=== PATIENT | male | born 1985 | race Caucasian/White ===

== ENCOUNTER 2016-07-02 10:34 | Emergency (ER) | payer BC ==
[2016-07-02] MEDS ORDERED: cefTRIAXone 250 MG Vial IM ONE (11:05)
[2016-07-02] MEDS ORDERED: cefTRIAXone 1,000 MG in Lidocaine 1% 4 ML IM ONE (11:17)
--- NOTE | 2016-07-02 11:25 | EDM.PDOC ---
ED HPI GENERAL MEDICAL PROBLEM - General Chief Complaint: Skin Complaint Stated Complaint: NOT FEELING WELL Time Seen by Provider: 07/02/16 11:21 Source of Information: Reports: Patient History Limitations: Reports: No Limitations - History of Present Illness INITIAL COMMENTS - FREE TEXT/NARRATIVE: History of present illness: [31-year-old male comes in complaining of any skin eruption on his left gluteal fold. Patient indicates that it started approximately 3 or 4 days ago and had become too little bit of the head and now with swelling and more painful.] Review of systems: As per history of present illness and below otherwise all systems reviewed and negative. Past medical history: As per history of present illness and as reviewed below otherwise noncontributory. Surgical history: As per history of present illness and as reviewed below otherwise noncontributory. Social history: No reported history of drug or alcohol abuse. Family history: As per history of present illness and as reviewed below otherwise noncontributory. Physical exam: HEENT: Atraumatic, normocephalic, pupils reactive, negative for conjunctival pallor or scleral icterus, mucous membranes moist, throat clear, neck supple, nontender, trachea midline. Lungs: Clear to auscultation, breath sounds equal bilaterally, chest nontender. Heart: S1S2, regular, negative for clicks, rubs, or JVD. Abdomen: Soft, nondistended, nontender. Negative for masses or hepatosplenomegaly. Negative for costovertebral tenderness. Pelvis: Stable nontender. Genitourinary: Deferred. Rectal: Left buttock with diffuse erythematous hard area without bogginess or clear delineation for I&D Extremities: Atraumatic, negative for cords or calf pain. Neurovascular unremarkable. Neuro: Awake, alert, oriented. Cranial nerves II through XII unremarkable. Cerebellum unremarkable. Motor and sensory unremarkable throughout. Exam nonfocal. Diagnostics: [] Therapeutics: [2 g Rocephin IM] Impression: [Folliculitis/cellulitis] Plan: [Bactrim DS] Definitive disposition and diagnosis as appropriate pending reevaluation and review of above. Buttock Pain Score (Numeric/FACES): 7 - Related Data Allergies Allergy/AdvReac Type Severity Reaction Status Date / Time No Known Allergies Allergy Verified 07/02/16 10:43 Home Meds: Home Meds Sulfamethoxazole/Trimethoprim [Bactrim Ds Tablet] 1 each PO BID #20 tablet 07/02 [Rx] Past Medical History - Past Health History Medical/Surgical History: Denies Medical/Surgical History HEENT History: Reports: None Cardiovascular History: Reports: None Respiratory History: Reports: None Gastrointestinal History: Reports: None Genitourinary History: Reports: None Musculoskeletal History: Reports: None Neurological History: Reports: None Psychiatric History: Reports: None Endocrine/Metabolic History: Reports: None Hematologic History: Reports: None Immunologic History: Reports: None Oncologic (Cancer) History: Reports: None Dermatologic History: Reports: Cellulitis - Infectious Disease History Infectious Disease History: Reports: MRSA - Past Surgical History Head Surgeries/Procedures: Reports: None Male Surgical History: Reports: None Social & Family History - Family History Family Medical History: Noncontributory - Tobacco Use Smoking Status *Q: Current Every Day Smoker Years of Tobacco use: 10 Packs/Tins Daily: 0.5 - Caffeine Use Caffeine Use: Reports: Energy Drinks, Soda - Alcohol Use Days Per Week of Alcohol Use: 1 Number of Drinks Per Day: 10 Total Drinks Per Week: 10 - Recreational Drug Use Recreational Drug Use: No ED ROS GENERAL - Review of Systems Review Of Systems: See Below (See history of present illness) ED EXAM, SKIN/RASH Exam: See Below (See history of present illness) Course - Vital Signs Last Recorded V/S: Last Vital Signs Temp 36.6 C 07/02/16 10:44 Pulse 88 07/02/16 10:44 Resp 18 07/02/16 10:44 BP 158/68 H 07/02/16 10:44 Pulse Ox 96 07/02/16 10:44 - Orders/Labs/Meds Meds: Medications Discontinued Medications Generic Name Dose Route Start Last Admin Trade Name Janet PRN Reason Stop Dose Admin Ceftriaxone Sodium 2,000 mg 07/02/16 11:05 07/02/16 11:16 Rocephin IM 07/02/16 11:06 Not Given ONETIME ONE Ceftriaxone Sodium 1,000 mg/ 4 mls @ 4 mls/sec 07/02/16 11:17 Lidocaine HCl IM 07/02/16 11:18 ONETIME ONE Ceftriaxone Sodium 1,000 mg/ 2 mls @ 2 mls/sec 07/02/16 11:17 Lidocaine HCl IM 07/02/16 11:18 ONETIME ONE Departure - Departure Time of Disposition: 11:24 Disposition: Home, Self-Care 01 Preliminary Cause of *Q: Cardiac arrest Clinical Impression: Cellulitis - Discharge Information Prescriptions: Sulfamethoxazole/Trimethoprim [Bactrim Ds Tablet] 1 each PO BID #20 tablet Forms: ED Department Discharge Additional Instructions: The following information is given to patients seen in the emergency department who are being discharged to home. This information is to outline your options for follow-up care. We provide all patients seen in our emergency department with a follow-up referral. The need for follow-up, as well as the timing and circumstances, are variable depending upon the specifics of your emergency department visit. If you don't have a primary care physician on staff, we will provide you with a referral. We always advise you to contact your personal physician following an emergency department visit to inform them of the circumstance of the visit and for follow-up with them and/or the need for any referrals to a consulting specialist. The emergency department will also refer you to a specialist when appropriate. This referral assures that you have the opportunity for follow-up care with a specialist. All of these measure are taken in an effort to provide you with optimal care, which includes your follow-up. Under all circumstances we always encourage you to contact your private physician who remains a resource for coordinating your care. When calling for follow-up care, please make the office aware that this follow-up is from your recent emergency room visit. If for any reason you are refused follow-up, please contact the [facility] Emergency Department at and asked to speak to the emergency department charge nurse. Take medication as directed Followup with PCP in one to 2 days Return to ED as needed as discussed [facility] [address] [place] [id number]
[2016-07-02] MEDS: LIDOCAINE 1% IM ONE (11:34)
[2016-07-02] MEDS: CEFTRIAXONE IM ONE (11:34)
[2016-07-02 13:12] VITALS: BP 142/72
== END 2016-07-02 11:38 | disposition home or self-care (01) ==
LOC: MW.ED 10:34
DX: L03.317 Cellulitis of buttock (principal); F17.210 Nicotine dependence, cigarettes, uncomplicated
CPT/HCPCS: 96372; 99283; J0696

== ENCOUNTER 2018-11-17 19:34 | Emergency (ER) | payer BC ==
[2018-11-17] MEDS ORDERED: cefTRIAXone 1 GM in Premix Bag 1 BAG IV ONE (19:55)
--- NOTE | 2018-11-17 20:10 | EDM.PDOC ---
ED HPI GENERAL MEDICAL PROBLEM - General Chief Complaint: Skin Complaint Stated Complaint: UNKNOWN Time Seen by Provider: 11/17/18 19:38 Source of Information: Reports: Patient History Limitations: Reports: No Limitations - History of Present Illness INITIAL COMMENTS - FREE TEXT/NARRATIVE: HISTORY AND PHYSICAL: History of present illness: Patient is a 33-year-old male presents to the ED today with concern of an infection on his mid abdomen 5 days. Patient states he's had issues with boils popping up over his body over the past several months and has taken Keflex with resolution of the infections. Patient states he started getting an infection in his midabdomen 5 days ago which has not resolved. Other than the infection, patient denies any other symptoms or concerns at this time. Patient denies fever, chills, chest pain, shortness of breath, or cough. Denies headache, neck stiff ness, change in vision, syncope, or near syncope. Denies nausea, vomiting, abdominal pain, diarrhea, constipation, or dysuria. Has not noted any blood in urine or stool. Patient has been eating and drinking appropriately. Review of systems: As per history of present illness and below otherwise all systems reviewed and negative. Past medical history: As per history of present illness and as reviewed below otherwise noncontributory. Surgical history: As per history of present illness and as reviewed below otherwise noncontributory. Social history: See social history for further information Family history: As per history of present illness and as reviewed below otherwise noncontributory. Physical exam: General: Patient is alert, oriented, and in no acute distress. Patient sitting comfortably on exam table. HEENT: Atraumatic, normocephalic, pupils equal and reactive bilaterally, negative for conjunctival pallor or scleral icterus, mucous membranes moist, TMs normal bilaterally, throat clear, neck supple, nontender, trachea midline. No drooling or trismus noted. No meningeal signs. No hot potato voice noted. Lungs: Clear to auscultation, breath sounds equal bilaterally, chest nontender. Heart: S1S2, regular rate and rhythm without overt murmur Abdomen: Soft, nondistended, nontender. Negative for masses or hepatosplenomegaly. Negative for costovertebral tenderness. Pelvis: Stable nontender. Genitourinary: Deferred. Rectal: Deferred. Skin: Intact, warm, dry. No lesions or rashes noted. Extremities: Atraumatic, negative for cords or calf pain. Neurovascular unremarkable. Neuro: Awake, alert, oriented. Cranial nerves II through XII unremarkable. Cerebellum unremarkable. Motor and sensory unremarkable throughout. Exam nonfocal. Notes: Dr. Gerard directly involved in patient care I did call and speak with Dr. Powell, general surgeon emission technician, who would like patient to not eat or drink anything tonight after midnight and to arrive tomorrow at 7:30/8a.m at the day surgery center, and he plans to I&D the abscess tomorrow morning. Voices understanding and is agreeable to plan of care. Denies any further questions or concerns at this time. Diagnostics: CBC, CMP, UA, lactate, blood cultures 2, abdominal pelvic CT with contrast Therapeutics: Rocephin Prescription: None Impression: Subcutaneous abdominal abscess Plan: 1. You are to arrive tomorrow at 7:45am/8am at that same day surgery center to be seen by Dr. Powell for surgery. 2. Do not eat or drink anything after midnight tonight. 3. You can alternate ibuprofen and Tylenol as directed for pain and discomfort. 4. Return to the ED as needed and as discussed. Definitive disposition and diagnosis as appropriate pending reevaluation and review of above. middle abd Pain Score (Numeric/FACES): 7 - Related Data Allergies Allergy/AdvReac Type Severity Reaction Status Date / Time No Known Allergies Allergy Verified 11/17/18 19:44 Home Meds: Home Meds FLUoxetine HCl [Fluoxetine] 1 tab DAILY 11/17/18 [History] Past Medical History - Past Health History Medical/Surgical History: Denies Medical/Surgical History HEENT History: Reports: None Cardiovascular History: Reports: None Respiratory History: Reports: None Gastrointestinal History: Reports: None Genitourinary History: Reports: None Musculoskeletal History: Reports: None Neurological History: Reports: None Psychiatric History: Reports: None Endocrine/Metabolic History: Reports: None Hematologic History: Reports: None Immunologic History: Reports: None Oncologic (Cancer) History: Reports: None Dermatologic History: Reports: Cellulitis - Infectious Disease History Infectious Disease History: Reports: MRSA - Past Surgical History Head Surgeries/Procedures: Reports: None Male Surgical History: Reports: None Social & Family History - Family History Family Medical History: Noncontributory - Tobacco Use Smoking Status *Q: Current Every Day Smoker Years of Tobacco use: 3 Packs/Tins Daily: 0.5 - Caffeine Use Caffeine Use: Reports: None - Recreational Drug Use Recreational Drug Use: No ED ROS GENERAL - Review of Systems Review Of Systems: ROS reveals no pertinent complaints other than HPI. ED EXAM, SKIN/RASH Exam: See Below (See dictation) Course - Vital Signs Last Recorded V/S: Last Vital Signs Temp 97.6 F 11/17/18 19:42 Pulse 88 11/17/18 19:42 Resp 18 11/17/18 19:42 BP 143/90 H 11/17/18 19:42 Pulse Ox 96 11/17/18 19:42 - Orders/Labs/Meds Orders: Active Orders 24 hr Category Date Time Status CULTURE BLOOD [BC] Stat Lab 11/17/18 20:07 Received CULTURE BLOOD [BC] Stat Lab 11/17/18 20:19 Received Blood Culture x2 Reflex Set [OM.PC] Stat Oth 11/17/18 19:54 Ordered Labs: Laboratory Tests 11/17/18 11/17/18 11/17/18 Range/Units 19:50 20:07 20:07 WBC 13.59 H (4.0-11.0) K/uL RBC 5.23 (4.50-5.90) M/uL Hgb 15.6 (13.0-17.0) g/dL Hct 46.1 (38.0-50.0) % MCV 88.1 (80.0-98.0) fL MCH 29.8 (27.0-32.0) pg MCHC 33.8 (31.0-37.0) g/dL RDW Std Deviation 49.1 (28.0-62.0) fl RDW Coeff of Shereen 15 (11.0-15.0) % Plt Count 213 (150-400) K/uL MPV 10.20 (7.40-12.00) fL Neut % (Auto) 81.0 H (48.0-80.0) % Lymph % (Auto) 8.6 L (16.0-40.0) % [place] % (Auto) 8.2 (0.0-15.0) % Eos % (Auto) 2.1 (0.0-7.0) % Baso % (Auto) 0.1 (0.0-1.5) % Neut # (Auto) 11.0 H (1.4-5.7) K/uL Lymph # (Auto) 1.2 (0.6-2.4) K/uL [place] # (Auto) 1.1 H (0.0-0.8) K/uL Eos # (Auto) 0.3 (0.0-0.7) K/uL Baso # (Auto) 0.0 (0.0-0.1) K/uL Nucleated RBC % 0.0 /100WBC Nucleated RBCs # 0 K/uL Lactate (0.20-2.00) mmol/L Sodium 138 (136-148) mmol/L Potassium 4.3 (3.5-5.1) mmol/L Chloride 102 (98-107) mmol/L Carbon Dioxide 24.6 (21.0-32.0) mmol/L BUN 17 (7.0-18.0) mg/dL Creatinine 1.6 H (0.8-1.3) mg/dL Est Cr Clr Drug Dosing 70.73 mL/min Estimated GFR (MDRD) 49.4 ml/min Glucose 80 (74-106) mg/dL Calcium 8.6 (8.5-10.1) mg/dL Total Bilirubin 0.5 (0.2-1.0) mg/dL AST 61 H (15-37) IU/L ALT 77 H (14-63) IU/L Alkaline Phosphatase 48 (46-116) U/L Total Protein 7.8 (6.4-8.2) g/dL Albumin 3.4 (3.4-5.0) g/dL Globulin 4.4 H (2.6-4.0) g/dL Albumin/Globulin Ratio 0.8 L (0.9-1.6) Urine Color YELLOW Urine Appearance SLT CLOUDY Urine pH 6.0 (5.0-8.0) Ur Specific [place] >= 1.030 (1.001-1.035) Urine Protein 100 H (NEGATIVE) mg/dL Urine Glucose (UA) NEGATIVE (NEGATIVE) mg/dL Urine Ketones NEGATIVE (NEGATIVE) mg/dL Urine Occult Blood TRACE-INTACT H (NEGATIVE) Urine Nitrite NEGATIVE (NEGATIVE) Urine Bilirubin SMALL H (NEGATIVE) Urine Urobilinogen 1.0 (<2.0) EU/dL Ur Leukocyte Esterase NEGATIVE (NEGATIVE) Urine RBC 0-2 (0-2/HPF) Urine WBC 0-1 (0-5/HPF) Ur Epithelial Cells RARE (NONE-FEW) Urine Bacteria RARE (NEGATIVE) Urine Mucus LIGHT (NONE-MOD) 11/17/18 Range/Units 20:07 WBC (4.0-11.0) K/uL RBC (4.50-5.90) M/uL Hgb (13.0-17.0) g/dL Hct (38.0-50.0) % MCV (80.0-98.0) fL MCH (27.0-32.0) pg MCHC (31.0-37.0) g/dL RDW Std Deviation (28.0-62.0) fl RDW Coeff of Shereen (11.0-15.0) % Plt Count (150-400) K/uL MPV (7.40-12.00) fL Neut % (Auto) (48.0-80.0) % Lymph % (Auto) (16.0-40.0) % [place] % (Auto) (0.0-15.0) % Eos % (Auto) (0.0-7.0) % Baso % (Auto) (0.0-1.5) % Neut # (Auto) (1.4-5.7) K/uL Lymph # (Auto) (0.6-2.4) K/uL [place] # (Auto) (0.0-0.8) K/uL Eos # (Auto) (0.0-0.7) K/uL Baso # (Auto) (0.0-0.1) K/uL Nucleated RBC % /100WBC Nucleated RBCs # K/uL Lactate 0.9 (0.20-2.00) mmol/L Sodium (136-148) mmol/L Potassium (3.5-5.1) mmol/L Chloride (98-107) mmol/L Carbon Dioxide (21.0-32.0) mmol/L BUN (7.0-18.0) mg/dL Creatinine (0.8-1.3) mg/dL Est Cr Clr Drug Dosing mL/min Estimated GFR (MDRD) ml/min Glucose (74-106) mg/dL Calcium (8.5-10.1) mg/dL Total Bilirubin (0.2-1.0) mg/dL AST (15-37) IU/L ALT (14-63) IU/L Alkaline Phosphatase (46-116) U/L Total Protein (6.4-8.2) g/dL Albumin (3.4-5.0) g/dL Globulin (2.6-4.0) g/dL Albumin/Globulin Ratio (0.9-1.6) Urine Color Urine Appearance Urine pH (5.0-8.0) Ur Specific [place] (1.001-1.035) Urine Protein (NEGATIVE) mg/dL Urine Glucose (UA) (NEGATIVE) mg/dL Urine Ketones (NEGATIVE) mg/dL Urine Occult Blood (NEGATIVE) Urine Nitrite (NEGATIVE) Urine Bilirubin (NEGATIVE) Urine Urobilinogen (<2.0) EU/dL Ur Leukocyte Esterase (NEGATIVE) Urine RBC (0-2/HPF) Urine WBC (0-5/HPF) Ur Epithelial Cells (NONE-FEW) Urine Bacteria (NEGATIVE) Urine Mucus (NONE-MOD) Meds: Medications Discontinued Medications Generic Name Dose Route Start Last Admin Trade Name Freq PRN Reason Stop Dose Admin Ceftriaxone Sodium/Dextrose 1 50 mls @ 100 mls/hr 11/17/18 19:55 11/17/18 20: 18 gm/ Premix IV 11/17/18 20:24 100 mls/hr ONETIME ONE Administration Iopamidol 100 ml 11/17/18 20:55 11/17/18 20:57 Isovue Multipack-370 (76%) IVPUSH 11/17/18 20:56 100 ml ONETIME STA Administration Departure - Departure Time of Disposition: 22:25 Disposition: Home, Self-Care 01 Clinical Impression: Subcutaneous abscess Qualifiers: Site of cutaneous abscess: trunk Site of cutaneous abscess of trunk: abdominal wall Qualified Code(s): L02.211 - Cutaneous abscess of abdominal wall - Discharge Information Referrals: PCP,None [Primary Care Provider] - Forms: ED Department Discharge Additional Instructions: The following information is given to patients seen in the emergency department who are being discharged to home. This information is to outline your options for follow-up care. We provide all patients seen in our emergency department with a follow-up referral. The need for follow-up, as well as the timing and circumstances, are variable depending upon the specifics of your emergency department visit. If you don't have a primary care physician on staff, we will provide you with a referral. We always advise you to contact your personal physician following an emergency department visit to inform them of the circumstance of the visit and for follow-up with them and/or the need for any referrals to a consulting specialist. The emergency department will also refer you to a specialist when appropriate. This referral assures that you have the opportunity for follow-up care with a specialist. All of these measure are taken in an effort to provide you with optimal care, which includes your follow-up. Under all circumstances we always encourage you to contact your private physician who remains a resource for coordinating your care. When calling for follow-up care, please make the office aware that this follow-up is from your recent emergency room visit. If for any reason you are refused follow-up, please contact the [facility] Emergency Department at and asked to speak to the emergency department charge nurse. [facility] [address] [place] [address] [facility] - General Surgery, Dr. Powell Professional [address], [address] [place] [address] 1. You are to arrive tomorrow at 7:45am/8am at that same day surgery center to be seen by Dr. Powell for surgery. 2. Do not eat or drink anything after midnight tonight. 3. You can alternate ibuprofen and Tylenol as directed for pain and discomfort. 4. Return to the ED as needed and as discussed. - My Orders Last 24 Hours: My Active Orders 11/17/18 19:54 Blood Culture x2 Reflex Set [OM.PC] Stat 11/17/18 20:07 CULTURE BLOOD [BC] Stat 11/17/18 20:19 CULTURE BLOOD [BC] Stat - Assessment/Plan Last 24 Hours: My Active Orders 11/17/18 19:54 Blood Culture x2 Reflex Set [OM.PC] Stat 11/17/18 20:07 CULTURE BLOOD [BC] Stat 11/17/18 20:19 CULTURE BLOOD [BC] Stat
[2018-11-17 20:33] LABS: CARBON DIOXIDE,CO2 24.6 mmol/L (21.0-32.0); POTASSIUM,K 4.3 mmol/L (3.5-5.1)
[2018-11-17] MEDS ORDERED: Iopamidol 755 MG/ML 500 ML Multipack Bottle IVPUSH STA (20:55)
--- NOTE | 2018-11-17 21:28 | CT ---
INDICATION: Infection around epigastric area. TECHNIQUE: Contiguous axial images were acquired through the abdomen and pelvis after the intravenous administration of contrast. Sagittal and coronal reconstructions. COMPARISON: None. FINDINGS: Lower chest: Normal heart size. No pericardial effusion. Lung bases are clear. No pleural fluid. Abdomen and pelvis: The liver appears unremarkable. Contracted gallbladder. Spleen is normal in size. Pancreas is within normal limits. No adrenal gland abnormality. Kidneys are normal size. No suspicious renal mass or hydronephrosis. Normal caliber abdominal aorta. No abnormally dilated bowel to suggest obstruction. No free air or free fluid. Unremarkable urinary bladder and prostate. Other: There is a small fat containing supraumbilical hernia. Within the subcutaneous tissues anterior to the tip of the xiphoid, there is a subtle low-attenuation focus which on axial image 36 measures 2.5 x 1.3 cm. There are surrounding inflammatory changes. Bones: No acute abnormality. IMPRESSION: 1. In the subcutaneous tissues anterior to the tip of the xiphoid process there is a subtle low-attenuation focus with surrounding inflammatory changes, which is concerning for an abscess. 2. Nonacute findings as noted. Dictated by Rafiq Irene MD @ 11/17/2018 9:27:20 PM Please note that all CT scans at this facility use dose modulation, iterative reconstruction, and/or weight-based dosing when appropriate to reduce radiation dose to as low as reasonably achievable. Dictated by: Rafiq Irene MD @ 11/17/2018 21:27:25 (Electronically Signed)
[2018-11-17 22:29] VITALS: BP 159/79; PULSE 84
== END 2018-11-17 22:36 | disposition home or self-care (01) ==
LOC: MW.ED 19:34
DX: L02.211 Cutaneous abscess of abdominal wall (principal); F17.210 Nicotine dependence, cigarettes, uncomplicated
CPT/HCPCS: 36415; 74177; 80053; 81001; 83605; 85025; 87040; 96365; 99284; J0696; Q9967

== ENCOUNTER 2018-11-18 10:53 | Day surgery (SDC) | payer BC ==
[2018-11-18] MEDS ORDERED: ceFAZolin 1 GM Vial ONE (11:29)
[2018-11-18] MEDS ORDERED: Bupivacaine 0.5% 10 ML SDV ONE (11:29)
--- NOTE | 2018-11-18 12:13 | PCM.PREANE ---
Preanesthetic Assessment - Anesthesia/Transfusion/Family Hx Anesthesia History: Prior Anesthesia Without Reaction Family History of Anesthesia Reaction: No Transfusion History: No Prior Transfusion(s) - Review of Systems General: No Symptoms Pulmonary: No Symptoms Cardiovascular: No Symptoms Gastrointestinal: No Symptoms, Other (subcutaneous abcess) Neurological: No Symptoms Other: Reports: None - Physical Assessment NPO Status Date: 11/17/18 Vital Signs: Last Vital Signs Temp 98.1 F 11/18/18 11:23 Pulse 87 11/18/18 11:23 Resp 14 11/18/18 11:23 BP 165/66 H 11/18/18 11:23 Pulse Ox 99 11/18/18 11:23 Height: 6 ft Weight: 104.326 kg ASA Class: 2 Mental Status: Alert & Oriented x3 Airway Class: Mallampati = 2 Dentition: Reports: Normal Dentition ROM/Head Extension: Full Lungs: Clear to Auscultation, Normal Respiratory Effort Cardiovascular: Regular Rate, Regular Rhythm - Allergies Allergies/Adverse Reactions: Allergies Allergy/AdvReac Type Severity Reaction Status Date / Time No Known Allergies Allergy Verified 11/18/18 07:17 - Blood Blood Available: No - Anesthesia Plan Pre-Op Medication Ordered: None - Acknowledgements Anesthesia Type Planned: General Anesthesia Pt an Appropriate Candidate for the Planned Anesthesia: Yes Alternatives and Risks of Anesthesia Discussed w Pt/Guardian: Yes Additional Comments: PMH: smoker PLAN: ga/lma PreAnesthesia Questionnaire - Past Health History Medical/Surgical History: Denies Medical/Surgical History HEENT History: Reports: None Cardiovascular History: Reports: Other (See Below) Other Cardiovascular History: BP "a little high" but on no medications Respiratory History: Reports: None Gastrointestinal History: Reports: None Genitourinary History: Reports: None Musculoskeletal History: Reports: None Neurological History: Reports: None Psychiatric History: Reports: Anxiety, Depression, Other (See Below) Other Psychiatric History: going through divorce Endocrine/Metabolic History: Reports: Obesity/BMI 30+ Hematologic History: Reports: None Immunologic History: Other Immunologic History: MRSA in the past, states he has been cleared Oncologic (Cancer) History: Reports: None Dermatologic History: Reports: Cellulitis Other Dermatologic History: currently has open abdominal wound - Infectious Disease History Infectious Disease History: Reports: MRSA - Past Surgical History Head Surgeries/Procedures: Reports: None HEENT Surgical History: Reports: None Cardiovascular Surgical History: Reports: None Respiratory Surgical History: Reports: None GI Surgical History: Reports: None Male Surgical History: Reports: None Endocrine Surgical History: Reports: None Neurological Surgical History: Reports: Other (See Below) Other Neurological Surgeries/Procedures: spinal tap at 6 y/o under anesthesia Musculoskeletal Surgical History: Reports: None Oncologic Surgical History: Reports: None - SUBSTANCE USE Smoking Status *Q: Current Every Day Smoker Tobacco Use Within Last Twelve Months: Cigarettes - HOME MEDS Home Medications: Home Meds FLUoxetine HCl [Fluoxetine] 1 tab PO DAILY 11/17/18 [History] LORazepam [Ativan] 1 tab PO BID 11/18/18 [History] - CURRENT (IN HOUSE) MEDS Current Meds: Current Medications Discontinued Medications Bupivacaine HCl (Sensorcaine-Mpf 0.5%) Confirm Administered Dose 10 ml .ROUTE .STK-MED ONE Stop: 11/18/18 11:30 Cefazolin Sodium (Ancef) Confirm Administered Dose 3 gm .ROUTE .STK-MED ONE Stop: 11/18/18 11:30
[2018-11-18] MEDS ORDERED: Midazolam 1 MG/ML 2 ML SDV ONE (12:38)
[2018-11-18] MEDS ORDERED: fentaNYL 100 MCG/2 ML SDV ONE ×2 (12:40→13:01)
[2018-11-18] MEDS ORDERED: Propofol 200 MG/20 ML SDV ONE (12:42)
--- NOTE | 2018-11-18 12:47 | PCM.CONS ---
H&P History of Present Illness - General Date of Service: 11/18/18 Admit Problem/Dx: Anterior abdominal wall abscess Source of Information: Patient History Limitations: Reports: No Limitations - History of Present Illness Symptom Onset Date: 11/13/18 Duration of Symptoms: Reports: Day(s): Location: Reports: Abdomen Quality: Reports: Pressure, Throbbing Improves with: Reports: Rest Worsens with: Reports: Movement Associated Symptoms: Reports: No Other Symptoms - Related Data Allergies/Adverse Reactions: Allergies Allergy/AdvReac Type Severity Reaction Status Date / Time No Known Allergies Allergy Verified 11/18/18 07:17 Home Medications: Home Meds FLUoxetine HCl [Fluoxetine] 1 tab PO DAILY 11/17/18 [History] LORazepam [Ativan] 1 tab PO BID 11/18/18 [History] Past Medical History - Past Health History Medical/Surgical History: Denies Medical/Surgical History HEENT History: Reports: None Cardiovascular History: Reports: Other (See Below) Other Cardiovascular History: BP "a little high" but on no medications Respiratory History: Reports: None Gastrointestinal History: Reports: None Genitourinary History: Reports: None Musculoskeletal History: Reports: None Neurological History: Reports: None Psychiatric History: Reports: Anxiety, Depression, Other (See Below) Other Psychiatric History: going through divorce Endocrine/Metabolic History: Reports: Obesity/BMI 30+ Hematologic History: Reports: None Immunologic History: Other Immunologic History: MRSA in the past, states he has been cleared Oncologic (Cancer) History: Reports: None Dermatologic History: Reports: Cellulitis Other Dermatologic History: currently has open abdominal wound - Infectious Disease History Infectious Disease History: Reports: MRSA - Past Surgical History Head Surgeries/Procedures: Reports: None HEENT Surgical History: Reports: None Cardiovascular Surgical History: Reports: None Respiratory Surgical History: Reports: None GI Surgical History: Reports: None Male Surgical History: Reports: None Endocrine Surgical History: Reports: None Neurological Surgical History: Reports: Other (See Below) Other Neurological Surgeries/Procedures: spinal tap at 6 y/o under anesthesia Musculoskeletal Surgical History: Reports: None Oncologic Surgical History: Reports: None Social & Family History - Family History Family Medical History: Noncontributory - Tobacco Use Smoking Status *Q: Current Every Day Smoker Packs/Tins Daily: 0.5 - Caffeine Use Caffeine Use: Reports: None - Recreational Drug Use Drug Use in Last 12 Months: No H&P Review of Systems - Review of Systems: Review Of Systems: See Below General: Denies: Fever, Chills, Malaise, Weakness, Fatigue HEENT: Reports: No Symptoms Pulmonary: Denies: Shortness of Breath Cardiovascular: Denies: Chest Pain Gastrointestinal: Reports: No Symptoms Genitourinary: Denies: Dysuria, Frequency, Burning, Pain Musculoskeletal: Reports: No Symptoms Skin: Reports: Other (Anterior abdominal wall abscess just below the xiphoid) Psychiatric: Reports: No Symptoms Neurological: Denies: Confusion, Dizziness, Headache Hematologic/Lymphatic: Reports: No Symptoms Immunologic: Reports: No Symptoms Exam - Exam Exam: See Below - Vital Signs Vital Signs: Last Vital Signs Temp 98.1 F 11/18/18 11:23 Pulse 87 11/18/18 11:23 Resp 14 11/18/18 11:23 BP 165/66 H 11/18/18 11:23 Pulse Ox 99 11/18/18 11:23 Weight: 230 lb - Exam Quality Assessment: Supplemental Oxygen General: Alert, Oriented, Cooperative, Mild Distress HEENT: Conjunctiva Clear, EACs Clear, EOMI, Nares Patent, Pupils Equal, Pupils Reactive Neck: Supple, Trachea Midline Lungs: Clear to Auscultation, Normal Respiratory Effort Cardiovascular: Regular Rate, Regular Rhythm GI/Abdominal Exam: Normal Bowel Sounds, Soft, Non-Tender, No Distention (Male) Exam: Deferred Rectal (Males) Exam: Deferred Extremities: Normal Range of Motion. No: Normal Inspection Peripheral Pulses: 4+: Posterior Tibial (L), Posterior Tibial (R), Dorsalis Pedis (L), Dorsalis Pedis (R) Skin: Warm, Dry, Intact, Other (4 cm anterior abdominal wall abscess just below the xiphoid) Neurological: Cranial Nerves Intact, Reflexes Equal Bilateral Psychiatric: Alert, Normal Affect, Normal Mood Consult PN Assessment/Plan Procedures: Procedures EMERGENCY DEPT VISIT (01/19/18) EMERGENCY DEPT VISIT (07/02/16) EMERGENCY DEPT VISIT (08/17/13) EMERGENCY DEPT VISIT (08/17/13) EMERGENCY DEPT VISIT (05/06/13) EMERGENCY DEPT VISIT (05/06/13) THER/PROPH/DIAG INJ SC/IM (07/02/16) (1) Subcutaneous abscess SNOMED Code(s): 56842238 Code(s): L02.91 - CUTANEOUS ABSCESS, UNSPECIFIED Current Visit: No Qualifiers: Site of cutaneous abscess: trunk Site of cutaneous abscess of trunk: abdominal wall Qualified Code(s): L02.211 - Cutaneous abscess of abdominal wall Problem List Initiated/Reviewed/Updated: Yes Plan: Incision and drainage anterior abdominal wall abscess. He operative procedure, along with the risks including but not limited to bleeding, infection and recurrence of the abscess have been reviewed with the patient in the ambulatory surgery center today. Questions have been answered. Patient agrees to the procedure and wishes to proceed.
[2018-11-18] MEDS ORDERED: Ondansetron 4 MG/2 ML SDV ONE (13:10)
[2018-11-18] MEDS ORDERED: Acetaminophen/HYDROcodone 325-5 MG Tab PO PRN (13:25)
--- NOTE | 2018-11-18 13:25 | PCM.OPNOTE ---
- General Post-Op/Procedure Note Date of Surgery/Procedure: 11/18/18 Operative Procedure(s): Incision and drainage anterior abdominal wall abscess Pre Op Diagnosis: Abdominal wall abscess Post-Op Diagnosis: Same Anesthesia Technique: General LMA (ASA IIE) Primary Surgeon: Castillo Powell Fluid Replacement, Intraop: 650 EBL in mLs: 5 Condition: Good Free Text/Narrative:: DICTATION [id number] CPT CODE 98550
[2018-11-18] MEDS ORDERED: Lactated Ringers 1,000 ML IV SCH (13:30)
--- NOTE | 2018-11-18 13:56 | PCM48HPAN ---
Post Anesthesia Note - EVALUATION WITHIN 48HRS OF ANESTHETIC Vital Signs in Normal Range: Yes Patient Participated in Evaluation: Yes Respiratory Function Stable: Yes Airway Patent: Yes Cardiovascular Function Stable: Yes Hydration Status Stable: Yes Pain Control Satisfactory: Yes Nausea and Vomiting Control Satisfactory: Yes Mental Status Recovered: Yes Vital Signs: Last Vital Signs Temp 98.6 F 11/18/18 13:21 Pulse 76 11/18/18 13:51 Resp 15 11/18/18 13:51 BP 137/76 11/18/18 13:51 Pulse Ox 97 11/18/18 13:51
--- NOTE | 2018-11-18 13:56 | PCM.POSTAN ---
POST ANESTHESIA ASSESSMENT - MENTAL STATUS Mental Status: Alert, Oriented - VITAL SIGNS Vital Signs: Last Vital Signs Temp 98.6 F 11/18/18 13:21 Pulse 76 11/18/18 13:51 Resp 15 11/18/18 13:51 BP 137/76 11/18/18 13:51 Pulse Ox 97 11/18/18 13:51 - RESPIRATORY Respiratory Status: Respiratory Rate WNL, Airway Patent, O2 Saturation Stable - CARDIOVASCULAR CV Status: Pulse Rate WNL, Blood Pressure Stable - GASTROINTESTINAL GI Status: No Symptoms - POST OP HYDRATION Hydration Status: Adequate & Stable
[2018-11-18 14:38] VITALS: BP 140/85; PULSE 82
--- NOTE | 2018-11-18 16:18 | OR ---
SURGEON: Castillo Powell M.D. DATE OF PROCEDURE: 11/18/2018 OPERATION PERFORMED: Incision and drainage of superficial abdominal wall abscess. PRIMARY SURGEON: Castillo Powell M.D. ANESTHESIA: General LMA. ASA CLASSIFICATION: II. PREOPERATIVE DIAGNOSIS: Superficial abdominal wall abscess. POSTOPERATIVE DIAGNOSIS: Superficial abdominal wall abscess. ESTIMATED BLOOD LOSS: 5 mL. INTRAOPERATIVE FLUID REPLACEMENT: 650 mL of crystalloid. DESCRIPTION OF PROCEDURE: The patient was taken to the operating room, placed on the operating table in the supine position. Time-out was called for appropriate identification of the patient and procedure. Following satisfactory attainment of general anesthesia with placement of an LMA, the abdomen was prepped with Betadine solution. Sterile drapes were applied. The skin incision was made directly over the abscess cavity and deepened into that. Aerobic and anaerobic cultures were obtained and sent for culture, sensitivity, and Gram stain. Necrotic tissue was debrided away. The wound was irrigated with sterile saline solution. Half-inch [place] drain was brought to the operating table, cut to appropriate length, and placed into the wound itself. This was secured to the skin with a 2-0 nylon suture. Wound was inspected for hemostasis and bleeding sites were electrocoagulated. The wound was then dressed with fluffs and an ABD held in place with Medipore tape. Sponge, needle, and instrument counts were all correct. Following emergence from anesthesia and extubation, the patient was taken to recovery room in stable condition. LAWSON HEIN /[id number]
== END 2018-11-18 14:36 | disposition home or self-care (01) ==
LOC: MW.SDS 10:53
PROVIDERS: ATTEND Surgery
DX: L02.211 Cutaneous abscess of abdominal wall (principal); F32.9 Major depressive disorder, single episode, unspecified; F17.210 Nicotine dependence, cigarettes, uncomplicated
CPT/HCPCS: 10060; 87070; 87075; 87205; J0690; J2250; J2405; J2704; J3010; 87077; 87186; J3490